=== PATIENT | male | born 1990 | race Caucasian/White ===

== ENCOUNTER 2023-02-01 17:20 | Emergency (ER) | payer OTHER ==
[~2023-02-01] VITALS: Ht 172.7 cm; Wt 78.0 kg
[2023-02-01] MEDS ORDERED: IBUPROFEN 600MG TAB PO ONE (18:50)
[2023-02-01] MEDS ORDERED: AUGMENTIN 875 MG TAB PO ONE (18:50)
[2023-02-01] MEDS ORDERED: LIDOCAINE 1% MDV 20ML VIAL SC ONE (20:40)
[2023-02-01] MEDS ORDERED: AMOX875T2 PO (21:16)
[2023-02-01 21:37] VITALS: BP 121/67; TEMP 97.9; O2SAT 100
== END 2023-02-01 21:47 | disposition home or self-care (01) ==
LOC: M ED 17:20
DX: S61.200A Unspecified open wound of right index finger without damage to nail, initial encounter (principal); W54.0XXA Bitten by dog, initial encounter; Y92.009 Unspecified place in unspecified non-institutional (private) residence as the place of occurrence of the external cause; Y93.K9 Activity, other involving animal care; Y99.8 Other external cause status

== ENCOUNTER 2023-02-08 09:12 | Emergency (ER) | payer OTHER ==
[~2023-02-08] VITALS: Ht 175.3 cm; Wt 78.5 kg
[~2023-02-08 09:12] MED LIST: AMOX875T2 PO
[2023-02-08 09:13] VITALS: BP 111/75; TEMP 97; O2SAT 99
== END 2023-02-08 09:59 | disposition home or self-care (01) ==
LOC: M ED 09:55
DX: Z48.02 Encounter for removal of sutures (principal)